=== PATIENT | female | born 1975 | race Caucasian/White ===

== ENCOUNTER 2017-08-05 19:18 | Emergency (ER) | payer OTHER ==
[2017-08-05] MEDS: HALOPERIDOL LACTATE 5 MG/ML AMP IV (19:43)
[2017-08-05] MEDS: diphenhydrAMINE HCL 50 MG/ML VIAL IV PUSH (19:43)
[2017-08-05] MEDS: LORazepam 2 MG/ML VIAL IV PUSH (20:00)
[2017-08-05 20:01] LABS: AUTOMATED NEUTROPHIL # 8.5 TH/MM3 (1.8-7.7); BASOPHIL # 0.1 TH/MM3 (0-0.2); BASOPHIL % 0.7 % (0.0-2.0); EOSINOPHIL # 0.2 TH/MM3 (0-0.4); EOSINOPHIL % 1.8 % (0.0-4.0); HEMATOCRIT 40.9 % (35.0-46.0); HEMO FLAGS DIFF FINAL; HEMOGLOBIN 14.1 GM/DL (11.6-15.3); LYMPH % 27.4 % (9.0-44.0); LYMPHOCYTE # 3.5 TH/MM3 (1.0-4.8); MEAN CELL VOLUME 84.4 FL (80.0-100.0); MEAN CORPUSCULAR HGB CONC 34.4 % (32.0-36.0); MEAN PLATELET VOLUME 8.9 FL (7.0-11.0); MONO % 4.8 % (0.0-8.0); MONOCYTE # 0.6 TH/MM3 (0-0.9); NEUT % 65.3 % (16.0-70.0); PLATELET COUNT 354 TH/MM3 (150-450); RED BLOOD COUNT 4.85 MIL/MM3 (4.00-5.30); WHITE BLOOD COUNT 12.9 TH/MM3 (4.0-11.0)
[2017-08-05 20:15] LABS: ALBUMIN 3.5 GM/DL (3.4-5.0); ANION GAP 10 MEQ/L (5-15); AST (GOT) 22 U/L (15-37); BICARBONATE 23.1 MEQ/L (21.0-32.0); BLOOD UREA NITROGEN 6 MG/DL (7-18); CALCIUM 8.8 MG/DL (8.5-10.1); CHLORIDE 105 MEQ/L (98-107); CREATININE 0.98 MG/DL (0.50-1.00); GLOMERULAR FILTRATION RATE 62 ML/MIN (>89); GLUCOSE,RANDOM 115 MG/DL (74-106); SODIUM (NA) 138 MEQ/L (136-145)
[2017-08-05 20:18] LABS: ALCOHOL LESS THAN 3 MG/DL (0-5); ALKALINE PHOSPHATASE 143 U/L (45-117); ALT (GPT) 26 U/L (10-53); POTASSIUM 3.5 MEQ/L (3.5-5.1); TOTAL BILIRUBIN ADULT 0.2 MG/DL (0.2-1.0); TOTAL PROTEIN 7.6 GM/DL (6.4-8.2)
[2017-08-05] MEDS: HALOPERIDOL LACTATE 5 MG/ML AMP IV PUSH (21:15)
[2017-08-05 21:19] LABS: AMPHETAMINE, URINE NEG (NEG); BARBITURATES, URINE NEG (NEG); BENZODIAZEPINE,URINE NEG (NEG); CANNABINOIDS, URINE NEG (NEG); COCAINE, URINE NEG (NEG)
[2017-08-05 23:25] LABS: BILIRUBIN, URINE NEG (NEG); BLOOD, URINE NEG (NEG); COMMENT (UR) CULTURE INDICATED; CULTURE IF INDICATED CULTURE INDICATED; GLUCOSE,URINE NEG (NEG); KETONE, URINE NEG (NEG); NITRITE,URINE NEG (NEG); SQUAMOUS EPITHELIAL CELL URINE <1 /hpf (0-5); URINE COLOR LIGHT-YELLOW (YELLW/STRAW); URINE LEUKOCYTE ESTERASE LARGE (NEG)
[2017-08-06] MEDS: clonazePAM 1 MG TAB PO (08:42)
== END 2017-08-06 10:51 | disposition home or self-care (01) ==
LOC: NEPD 08-06 10:51
DX: F43.25 Adjustment disorder with mixed disturbance of emotions and conduct (principal); N30.00 Acute cystitis without hematuria; F84.0 Autistic disorder; F32.9 Major depressive disorder, single episode, unspecified; F41.9 Anxiety disorder, unspecified; Z04.6 Encounter for general psychiatric examination, requested by authority; Z88.5 Allergy status to narcotic agent; Z79.899 Other long term (current) drug therapy
CPT/HCPCS: 80053; 80307; 81001; 84703; 85025; 87086; 96372; 96374; 96375; 99284-25